=== PATIENT | male | born 1960 ===

== ENCOUNTER 2022-08-09 06:00 | Outpatient (RCR) | payer BC, SELFPAY | END 2022-08-09 23:59 | disposition home or self-care (01) | LOC: MR3 06:00 | PROVIDERS: Visit Provider Specialist/Technologist Athletic Trainer | DX: I63.9 Cerebral infarction, unspecified (principal) | CPT/HCPCS: 97162 ==

== ENCOUNTER 2022-08-10 06:00 | Outpatient (RCR) | payer BC, SELFPAY | END 2022-09-08 23:59 | disposition home or self-care (01) | LOC: MR3 06:00 | PROVIDERS: Visit Provider Specialist/Technologist Athletic Trainer | DX: I63.9 Cerebral infarction, unspecified (principal) | CPT/HCPCS: 92523; 97110; 97112; 97166 ==